=== PATIENT | male | born 1985 | race Caucasian/White ===

== ENCOUNTER 2017-07-04 21:07 | Emergency (ER) | payer SELFPAY ==
[2017-07-04] MEDS: LIDOCAINE WITH 8.4% SOD BICARB 3 ML DISP.SYRIN. INJ (21:54)
== END 2017-07-04 22:43 | disposition home or self-care (01) ==
LOC: ER 21:07
DX: L02.411 Cutaneous abscess of right axilla (principal); F12.10 Cannabis abuse, uncomplicated
CPT/HCPCS: 10060; 99283-25

== ENCOUNTER 2018-09-27 21:53 | Emergency (ER) | payer SELFPAY ==
[~2018-09-27] VITALS: Ht 177.8 cm; Wt 81.6 kg
[~2018-09-27 21:53] MED LIST: SULF1TAB24 PO
--- NOTE | 2018-09-27 22:03 | PHYS DOC ---
Past Medical History Past Medical History: No Pertinent History Past Surgical History: Other Additional Past Surgical Histo: LEFT ANKLE Alcohol Use: None Drug Use: Marijuana Adult General Chief Complaint Chief Complaint: CHEST PAIN HPI HPI Patient is a 33 year old L presented ER today for evaluation and of chest pain, sharp stabbing in nature started yesterday. Patient denies any trouble breath ing, denies any fever or cough. Patient admitted of using marijuana. He denies any other drug usages. He denies any recent travel, no recent operation. Patient had no previous history of blood clot disorder. No previous history of coronary artery disease. he had no history diabetic, no history hypertension, no history of high cholesterol. Review of Systems Review of Systems Constitutional: Denies fever or chills [] Eyes: Denies change in visual acuity, redness, or eye pain [] HENT: Denies nasal congestion or sore throat [] Respiratory: Denies cough or shortness of breath [] Cardiovascular: No additional information not addressed in HPI [] GI: Denies abdominal pain, nausea, vomiting, bloody stools or diarrhea [] : Denies dysuria or hematuria [] Musculoskeletal: Denies back pain or joint pain [] Integument: Denies rash or skin lesions [] Neurologic: Denies headache, focal weakness or sensory changes [] Endocrine: Denies polyuria or polydipsia [] All other systems were reviewed and found to be within normal limits, except as documented in this note. Current Medications Current Medications Current Medications Medications (Trade) Dose Ordered Sig/Yan Start Time Stop Time Status Last Admin Dose Admin Ketorolac Tromethamine (Toradol 30mg Vial) 30 mg 1X ONCE 09/27/18 23:00 09/27/18 23:01 DC 09/27/18 22:36 30 MG Sodium Chloride 1,000 ml @ 1,000 mls/hr 1X ONCE 09/27/18 22:30 09/27/18 23:29 DC 09/27/18 22:35 1,000 MLS/HR Allergies Allergies Allergies Coded Allergies Type Severity Reaction Last Updated Verified No Known Drug Allergies 07/04/17 No Physical Exam Physical Exam Constitutional: Well developed, well nourished, no acute distress, non-toxic appearance. [] HENT: Normocephalic, atraumatic, bilateral external ears normal, oropharynx moist, no oral exudates, nose normal. [] Eyes: PERRLA, EOMI, conjunctiva normal, no discharge. [] Neck: Normal range of motion, no tenderness, supple, no stridor. [] Cardiovascular:Heart rate regular rhythm, no murmur [] Lungs & Thorax: Bilateral breath sounds clear to auscultation . CHEST PAIN IS REPRODUCIBLE TO PALPATION. Abdomen: Bowel sounds normal, soft, no tenderness, no masses, no pulsatile masses. [] Skin: Warm, dry, no erythema, no rash. [] Back: No tenderness, no CVA tenderness. [] Extremities: No tenderness, no cyanosis, no clubbing, ROM intact, no edema. [] Neurologic: Alert and oriented X 3, normal motor function, normal sensory function, no focal deficits noted. [] Psychologic: Affect normal, judgement normal, mood normal. [] Current Patient Data Vital Signs Vital Signs Date Time Temp Pulse Resp B/P (MAP) Pulse Ox O2 Delivery O2 Flow Rate FiO2 09/27/18 21:58 98.8 75 16 156/80 (105) 97 Room Air 98.8 Lab Values Laboratory Tests Test 09/27/18 22:09 White Blood Count 8.9 x10^3/uL (4.0-11.0) Red Blood Count 5.48 x10^6/uL (4.30-5.70) Hemoglobin 17.0 g/dL (13.0-17.5) Hematocrit 48.1 % (39.0-53.0) Mean Corpuscular Volume 88 fL (79-100) Mean Corpuscular Hemoglobin 31 pg (25-35) Mean Corpuscular Hemoglobin Concent 35 g/dL (31-37) Red Cell Distribution Width 14.0 % (11.5-14.5) Platelet Count 167 x10^3/uL (140-400) Neutrophils (%) (Auto) 52 % (31-73) Lymphocytes (%) (Auto) 36 % (24-48) Monocytes (%) (Auto) 9 % (0-9) Eosinophils (%) (Auto) 2 % (0-3) Basophils (%) (Auto) 1 % (0-3) Neutrophils # (Auto) 4.6 x10^3/uL (1.8-7.7) Lymphocytes # (Auto) 3.2 x10^3/uL (1.0-4.8) Monocytes # (Auto) 0.8 x10^3/uL (0.0-1.1) Eosinophils # (Auto) 0.1 x10^3/uL (0.0-0.7) Basophils # (Auto) 0.1 x10^3/uL (0.0-0.2) Prothrombin Time 13.3 SEC (11.7-14.0) Prothrombin Time INR 1.0 (0.8-1.1) Sodium Level 133 mmol/L (136-145) L Potassium Level 3.4 mmol/L (3.5-5.1) L Chloride Level 94 mmol/L (98-107) L Carbon Dioxide Level 26 mmol/L (21-32) Anion Gap 13 (6-14) Blood Urea Nitrogen 22 mg/dL (8-26) Creatinine 1.8 mg/dL (0.7-1.3) H Estimated GFR (Cockcroft-Gault) 43.9 BUN/Creatinine Ratio 12 (6-20) Glucose Level 99 mg/dL (70-99) Calcium Level 10.2 mg/dL (8.5-10.1) H Magnesium Level 2.5 mg/dL (1.8-2.4) H Total Bilirubin 0.6 mg/dL (0.2-1.0) Aspartate Amino Transferase (AST) 19 U/L (15-37) Alanine Aminotransferase (ALT) 19 U/L (16-63) Alkaline Phosphatase 72 U/L (46-116) Creatine Kinase 132 U/L (39-308) Creatine Kinase MB (Mass) 1.1 ng/mL (0.0-3.6) Creatine Kinase MB Relative Index 0.8 % (0-4) Troponin I Quantitative < 0.017 ng/mL (0.000-0.055) DI-Vmv-X-Type Natriuretic Peptide 29 pg/mL (0-124) Total Protein 9.2 g/dL (6.4-8.2) H Albumin 4.8 g/dL (3.4-5.0) Albumin/Globulin Ratio 1.1 (1.0-1.7) Lipase 72 U/L (73-393) L Laboratory Tests 09/27/18 22:09 Laboratory Tests 09/27/18 22:09 EKG EKG ekg with rate of 65 BPM, SINUS RHYTHM, NO STEMI Radiology/Procedures Radiology/Procedures CHEST XRAY: NO ACUTE DISEASE. Course & Med Decision Making Course & Med Decision Making Pertinent Labs and Imaging studies reviewed. (See chart for details) Patient's work up was negative for any acute problem, chest pain is noncardiac in nature, will discharge him home. Dragon Disclaimer Dragon Disclaimer This electronic medical record was generated, in whole or in part, using a voice recognition dictation system. Departure Departure Impression: Primary Impression: Chest pain Disposition: 01 HOME, SELF-CARE Condition: STABLE Referrals: NO PCP (PCP) FOLLOW UP WITH YOUR DOCTOR FOR OUTPATIENT EVALUATION Patient Instructions: Chest Pain (Nonspecific) ANA WHITTEN DO Sep 27, 2018 22:03
[2018-09-27 22:16] LABS: BASO # 0.1 x10^3/uL (0.0-0.2); BASO % 1 % (0-3); EOS # 0.1 x10^3/uL (0.0-0.7); EOS % 2 % (0-3); HEMATOCRIT 48.1 % (39.0-53.0); LYMPH # 3.2 x10^3/uL (1.0-4.8); LYMPH % 36 % (24-48); MEAN CORPUSCULAR HEMOGLOBIN 31 pg (25-35); MEAN CORPUSCULAR HGB CONC 35 g/dL (31-37); MEAN CORPUSCULAR VOLUME 88 fL (79-100); MONO # 0.8 x10^3/uL (0.0-1.1); MONO % 9 % (0-9); NEUT # 4.6 x10^3/uL (1.8-7.7); NEUT % 52 % (31-73); PLATELET COUNT 167 x10^3/uL (140-400); RED BLOOD COUNT 5.48 x10^6/uL (4.30-5.70); WHITE BLOOD COUNT 8.9 x10^3/uL (4.0-11.0)
[2018-09-27 22:27] LABS: PROTHROMBIN TIME PATIENT 13.3 SEC (11.7-14.0)
[2018-09-27 22:28] LABS: CALCIUM 10.2 mg/dL (8.5-10.1); CREATININE 1.8 mg/dL (0.7-1.3); GFR 43.9; POTASSIUM 3.4 mmol/L (3.5-5.1)
[2018-09-27] MEDS ORDERED: IV NORMAL SALINE 1000ML BAG 1,000 ML IV ONE (22:30)
[2018-09-27 22:34] LABS: ALBUMIN 4.8 g/dL (3.4-5.0); ALBUMIN/GLOBULIN RATIO 1.1 (1.0-1.7); MAGNESIUM 2.5 mg/dL (1.8-2.4); TOTAL BILIRUBIN 0.6 mg/dL (0.2-1.0); TOTAL PROTEIN 9.2 g/dL (6.4-8.2)
[2018-09-27] MEDS ORDERED: KETOROLAC 30 MG/ML VIAL. IV ONE (23:00)
--- NOTE | 2018-09-27 23:25 | EKG ---
[facility] [address] [place] [address] Test Date: 2018-09-27 Test Time: 21:59:11 Pat Name: TRACEE GUERREROMariahAngel Department: Room: Gender: M Corporate Safety Manager: : 1985 Requested By: ANA WHITTEN Order Number: [id number] Reading MD: Measurements Intervals [place] Rate: 65 P: 50 NH: 158 QRS: 78 QRSD: 84 T: 58 QT: 382 QTc: 402 Interpretive Statements SINUS RHYTHM NO SPECIFIC ECG ABNORMALITIES RI6.01 Unconfirmed report No previous ECG available for comparison
[2018-09-27 23:34] VITALS: BP 127/63
--- NOTE | 2018-09-28 05:33 | RAD ---
AP portable chest radiograph 09/27/2018 Clinical History: Left-sided chest pain for one day. An AP erect portable digital radiograph of the chest was obtained. No previous studies are available for comparison. The cardiac and mediastinal silhouettes are within normal limits in size and configuration. No acute pulmonary infiltrate is seen. No pleural effusion or pneumothorax is noted. Degenerative changes are seen involving the thoracic spine. IMPRESSION: No acute abnormality is seen. Electronically signed by: Geoffrey Pinto MD (09/28/2018 5:30 AM) [id number]
== END 2018-09-28 00:10 | disposition home or self-care (01) ==
LOC: ER 21:53
DX: R07.89 Other chest pain (principal); F12.20 Cannabis dependence, uncomplicated
CPT/HCPCS: 36415; 71045; 80053; 82553; 83690; 83735; 83880; 84484; 85025; 85610; 93005; 96374; 99285; J1885; J7030

== ENCOUNTER 2019-08-25 14:51 | Emergency (ER) | payer SELFPAY ==
[~2019-08-25] VITALS: Ht 165.1 cm; Wt 70.5 kg
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
[2019-08-25 15:17] VITALS: BP 130/69
--- NOTE | 2019-08-25 15:43 | RAD ---
EXAM: 3 views left elbow DATE: 08/25/2019 3:11 PM INDICATION: FELL THIS MORNING, LEFT ELBOW PAIN / Spl. Instructions: / History: COMPARISON: No Prior FINDINGS/ IMPRESSION: Moderate left elbow joint effusion. Mildly depressed radial head fracture. Associated soft tissue swelling. Electronically signed by: Reggie Roberts MD (08/25/2019 3:40 PM) [id number]
[2019-08-25] MEDS ORDERED: HYDROcodone/APAP 5/325MG 1 TAB TABLET PO ONE (16:15)
[2019-08-25] MEDS ORDERED: HYDR-3164 PO (16:20)
== END 2019-08-25 16:33 | disposition home or self-care (01) ==
LOC: ER 14:51
DX: S52.122A Displaced fracture of head of left radius, initial encounter for closed fracture (principal); F17.200 Nicotine dependence, unspecified, uncomplicated; F12.90 Cannabis use, unspecified, uncomplicated; Z98.890 Other specified postprocedural states; W01.0XXA Fall on same level from slipping, tripping and stumbling without subsequent striking against object, initial encounter; Y93.89 Activity, other specified; Y92.89 Other specified places as the place of occurrence of the external cause; Y99.8 Other external cause status
CPT/HCPCS: 29105; 73080; 99283

== ENCOUNTER 2019-11-04 14:59 | Emergency (ER) | payer SELFPAY ==
[~2019-11-04] VITALS: Ht 165.1 cm; Wt 68.1 kg
[~2019-11-04 14:59] MED LIST changes: +HYDR-3164 PO
[2019-11-04 15:39] VITALS: BP 125/70
[2019-11-04] MEDS ORDERED: KETOROLAC 60 MG/2 ML VIAL. IM ONE (16:00)
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
[2019-11-04] MEDS ORDERED: ACETAMINOPHEN 325 MG TABLET. PO PRN (18:00)
[2019-11-04] MEDS ORDERED: ONDANSETRON PF 4 MG/2 ML VIAL. IV PRN (18:00)
[2019-11-04] MEDS ORDERED: MORPHINE SULFATE 4 MG/ML VIAL. IV PRN (18:00)
[2019-11-05] MEDS ORDERED: HYDR-3164 PO (07:05)
[2019-11-05] MEDS ORDERED: IBUP-1007 PO (07:05)
[2019-11-05] MEDS ORDERED: LIDOCAINE (700MG/PATCH) PATCH. TD SCH (09:00)
== END 2019-11-04 18:07 | disposition left against medical advice (07) ==
LOC: ER 14:59
DX: S22.31XA Fracture of one rib, right side, initial encounter for closed fracture (principal); J93.9 Pneumothorax, unspecified; F17.200 Nicotine dependence, unspecified, uncomplicated; F12.90 Cannabis use, unspecified, uncomplicated; Z98.890 Other specified postprocedural states; Y08.89XA Assault by other specified means, initial encounter; Y93.89 Activity, other specified; Y92.89 Other specified places as the place of occurrence of the external cause; Y99.8 Other external cause status
CPT/HCPCS: 71101; 71250; 96372; 99284; J1885

== ENCOUNTER 2020-10-16 17:52 | Emergency (ER) | payer SELFPAY ==
[~2020-10-16] VITALS: Ht 165.1 cm; Wt 77.3 kg
[~2020-10-16 17:52] MED LIST changes: +IBUP-1007 PO
--- NOTE | 2020-10-16 20:25 | RAD ---
INDICATION: Reason: cough / Spl. Instructions: / History: COMPARISON: November 04, 2019 FINDINGS: Single view of chest obtained. Cardiac silhouette is similar to prior. Degenerative changes the spine. Angulation of a couple the ribs likely from the patient's old rib fracture with callus formation. IMPRESSION: * No definite focal airspace consolidation. Electronically signed by: Jakob Sheth MD (10/16/2020 8:23 PM) [id number]
--- NOTE | 2020-10-16 20:41 | PHYS DOC ---
Past Medical History Past Medical History: No Pertinent History Past Surgical History: Other Additional Past Surgical Histo: LEFT ANKLE Smoking Status: Current Every Day Smoker Alcohol Use: Occasionally Drug Use: Marijuana General Adult EDM: Chief Complaint: COUGH HPI: HPI: Patient is a 35 year old male who presents with last couple days with no taste, no smell and cough. He is here with another family member that is Covid positive. Patient denies chest pain, fever, nausea, vomiting, diarrhea, dizziness, headache, syncope, numbness or tingling. He denies any past medical history. He has not been taking any medications for any of his symptoms. Review of Systems: Review of Systems: Constitutional: Denies fever or chills. [] Eyes: Denies change in visual acuity. [] HENT: Denies nasal congestion or sore throat. + Loss of taste , + loss of smell [] Respiratory: +cough or denies shortness of breath. [] Cardiovascular: Denies chest pain or edema. [] GI: Denies abdominal pain, nausea, vomiting, bloody stools or diarrhea. [] : Denies dysuria. [] Musculoskeletal: Denies back pain or joint pain. [] Integument: Denies rash. [] Neurologic: Denies headache, focal weakness or sensory changes. [] Endocrine: Denies polyuria or polydipsia. [] Lymphatic: Denies swollen glands. [] Psychiatric: Denies depression or anxiety. [] Heart Score: C/O Chest Pain: No Risk Factors: Risk Factors: DM, Current or recent (<one month) smoker, HTN, HLP, family history of CAD, obesity. Risk Scores: Score 0 - 3: 2.5% MACE over next 6 weeks - Discharge Home Score 4 - 6: 20.3% MACE over next 6 weeks - Admit for Clinical Observation Score 7 - 10: 72.7% MACE over next 6 weeks - Early Invasive Strategies Allergies: Allergies: Allergies Coded Allergies Type Severity Reaction Last Updated Verified No Known Drug Allergies 07/04/17 No Physical Exam: PE: Constitutional: Well developed, well nourished, no acute distress, non-toxic appearance. [] HENT: Normocephalic, atraumatic, bilateral external ears normal, oropharynx moist, no oral exudates, nose normal. [] Eyes: PERRLA, EOMI, conjunctiva normal, no discharge. [] Neck: Normal range of motion, no tenderness, supple, no stridor. [] Cardiovascular:Heart rate regular rhythm, no murmur [] Lungs & Thorax: Bilateral breath sounds clear to auscultation [] Abdomen: Bowel sounds normal, soft, no tenderness, no masses, no pulsatile masses. [] Skin: Warm, dry, no erythema, no rash. [] Back: No tenderness, no CVA tenderness. [] Extremities: No tenderness, no cyanosis, no clubbing, ROM intact, no edema. [] Neurologic: Alert and oriented X 3, normal motor function, normal sensory function, no focal deficits noted. [] Psychologic: Affect normal, judgement normal, mood normal. [] Normal physical exam Current Patient Data: Vital Signs: Vital Signs Date Time Temp Pulse Resp B/P (MAP) Pulse Ox O2 Delivery O2 Flow Rate FiO2 10/16/20 20:05 98.9 101 18 132/81 (88) 96 Room Air 98.9 EKG: EKG: [] Radiology/Procedures: Radiology/Procedures: [] Impression: [facility] [address] [place] [address] IMAGING REPORT Signed PATIENT: TRACEE BOLDEN JACCOUNT: [id number] : 1985 LOCATION: ER AGE: 35 SEX: M EXAM STATUS: REG ER ORD. PHYSICIAN: ALLIE GUAN APRN REASON: cough PROCEDURE: PORTABLE CHEST 1V INDICATION: Reason: cough / Spl. Instructions: / History: COMPARISON: November 04, 2019 FINDINGS: Single view of chest obtained. Cardiac silhouette is similar to prior. Degenerative changes the spine. Angulation of a couple the ribs likely from the patient's old rib fracture with callus formation. IMPRESSION: * No definite focal airspace consolidation. Electronically signed by: Pauline Sheth MD (10/16/2020 8:23 PM) [id number] DICTATED and SIGNED BY: PAULINE SHETH MD DATE: 10/16/[id number] 0 Course & Med Decision Making: Course & Med Decision Making Pertinent Labs and Imaging studies reviewed. (See chart for details) COVID-19 CRITERIA: The patient was evaluated during the global COVID-19 pandemic, and that diagnosis was suspected/considered upon their initial presentation. Their evaluation, treatment and testing was consistent with current guidelines for patients who present with complaints or symptoms that may be related to COVID-19. See HPI. Alert and oriented x4. Ambulatory with steady gait. Speaks in full clear sentences. Vital signs are within normal limits. Lungs are clear to auscultation all limits. Rapid Covid is negative. Patient is not in any respiratory distress. No accessory muscle use. Skin pink warm and dry. Chest x-ray shows no acute findings. [] Dragon Disclaimer: Dragon Disclaimer: This electronic medical record was generated, in whole or in part, using a voice recognition dictation system. Departure Departure Impression: Primary Impression: Person under investigation for COVID-19 Additional Impressions: Loss of taste Loss of smell Disposition: HOME / SELF CARE / HOMELESS Condition: STABLE Referrals: NO PCP (PCP) Patient Instructions: Cough, Adult Additional Instructions: Quarantine. Return to the hospital with severe shortness of breath, chest pain or he cannot keep any fluids down. Take ibuprofen or Tylenol for any of your pain. Take medication as prescribed and with food. Rest. Scripts Albuterol Sulfate (PROAIR HFA INHALER) 8.5 Gm Hfa.aer.ad 1 PUFF INH PRN Q6HRS PRN for SHORTNESS OF BREATH, #1 EACH 0 Refills Prov: ALLIE GUAN APRN 10/16/20 Methylprednisolone (MEDROL) 4 Mg Tab.ds.pk 1 PKG PO UD, #1 PKG Prov: ALLIE GUAN APRN 10/16/20 ALLIE GUAN APRN Oct 16, 2020 20:41
[2020-10-16 20:57] LABS: BASO % 0 % (0-3); EOS # 0.1 x10^3/uL (0.0-0.7); EOS % 1 % (0-3); HEMATOCRIT 42.1 % (39.0-53.0); HEMOGLOBIN 14.6 g/dL (13.0-17.5); LYMPH # 2.9 x10^3/uL (1.0-4.8); LYMPH % 50 % (24-48); MEAN CORPUSCULAR HEMOGLOBIN 31 pg (25-35); MEAN CORPUSCULAR HGB CONC 35 g/dL (31-37); MEAN CORPUSCULAR VOLUME 89 fL (79-100); MONO # 0.4 x10^3/uL (0.0-1.1); MONO % 7 % (0-9); NEUT # 2.4 x10^3/uL (1.8-7.7); NEUT % 42 % (31-73); PLATELET COUNT 99 x10^3/uL (140-400); RED BLOOD COUNT 4.76 x10^6/uL (4.30-5.70); WHITE BLOOD COUNT 5.8 x10^3/uL (4.0-11.0)
[2020-10-16 21:04] LABS: CALCIUM 9.1 mg/dL (8.5-10.1); CREATININE 1.4 mg/dL (0.7-1.3); POTASSIUM 3.6 mmol/L (3.5-5.1)
[2020-10-16 21:10] LABS: ALBUMIN 4.3 g/dL (3.4-5.0); ALBUMIN/GLOBULIN RATIO 1.3 (1.0-1.7); TOTAL BILIRUBIN 0.3 mg/dL (0.2-1.0); TOTAL PROTEIN 7.5 g/dL (6.4-8.2)
[2020-10-16 21:17] VITALS: BP 120/63
[2020-10-16] MEDS ORDERED: ALBU2.5V8 INH (21:50)
[2020-10-16] MEDS ORDERED: METH4TAB2 PO (21:50)
--- NOTE | 2020-10-17 16:44 | NUR ---
IP: Informed pt of positive covid test and the need to quarantine for 10 days. Pt verbalized understanding.
== END 2020-10-16 21:58 | disposition home or self-care (01) ==
LOC: ER 17:52
DX: U07.1 COVID-19 (principal); F17.200 Nicotine dependence, unspecified, uncomplicated
CPT/HCPCS: 36415; 71045; 80053; 84484; 85025; 87426; 99284; U0003; U0005